=== PATIENT | female | born 1985 | race Caucasian/White ===

== ENCOUNTER 2021-06-19 03:31 | Inpatient (IN) ==
[2021-06-19] MEDS ORDERED: OXYTOCIN 30 UNITS/500 ML BAG IV PRN ×3 (04:48→18:02)
[2021-06-19] MEDS ORDERED: PENICILLIN G POTASSIUM 6 MU in DEXTROSE 5% 250 ML IV STA (04:48)
--- NOTE | 2021-06-19 04:57 | History & Physical Report ---
Date of Service June 19, 2021 Assessment & Plan (1) Amniotic fluid leaking: Plan: IUP at 39 weeks with SPROM - thin mec staining noted GBS positive- will start PCN prophylaxis may need pitocin augmentation of labor wishes to have an unmedicated anticipate vaginal delivery History of Present Illness Primary Care Provider: NO PCP Patient is a 36 yo white female EDC 06/20 who presents at 39+ weeks with leaking fluid at 0300. She has had some ctns since then but nothing regular. complicated by AMA. Blood type B positive GBS positive Allergies Allergy/AdvReac Type Severity Reaction Status Date / Time No Known Allergies Allergy Verified 06/14/21 10:58 Home Medications Medication Instructions Recorded Confirmed Type prenat.vits,elke,ebf-hjmy-kytfz 1 tab PO DAILY 11/02/20 06/14/21 History docusate sodium [Stool Softener] 1 PO 04/26/21 06/14/21 History Patient History Medical History Chicken pox Migraine Yeast infection Surgical History S/P tonsillectomy Status post wisdom tooth extraction Family History Other Anemia Anxiety Arthritis Asthma Bladder infection Breast lump Depression Endometriosis Hypercholesteremia Hypertension Migraine Ovarian cancer Ovarian cyst Painful intercourse Sexual problems Denies family history of Breast cancer Colorectal cancer Social History Smoking Status: Never smoker Second Hand Exposure: No; Do You Dip or Chew Tobacco: No; Tobacco Cessation Education Requested by Patient: No Hx Alcohol Use: No Hx Substance Use: No Preferred Language: German Communication Ability: Effective Pharmacists Required: No Beliefs That Will Affect Care: None marital status: marital status details: Cyril Rosas (45) [phone] Current Living Situation: Spouse Current Living Situation Comment: 17yr and 14yr current occupational status: unemployed Other Information That Helps Us Care for You: No Feels Safe at Home: Yes Safety Concerns: Feels Safe At This Time Assistive Devices: None Review of Systems All systems reviewed & are unremarkable except as noted in HPI & below Physical Exam Constitutional: WD/WN, vitals as above Respiratory: normal respiratory effort, lungs clear to auscultation Cardiovascular: RRR, no murmur, no edema Gastrointestinal (Abdomen): normal bowel sounds, soft, nontender, no hepatosplenomegaly Psychiatric: A+Ox3, euthymic affect Genitourinary: OB Exam Abdomen: + vertex, + estimated weight (6-7 pounds) and + irregular contractions Manual OB Exam: + cervical dilation 4 cm, + cervical effacement 60%, + station (-3 but applied to the cervix) and + amniotic fluid meconium (thin) and nitrazine positive (pooling of thin mec stained fluid in vagina) OB Exam Monitor Tracing: + external FHT monitor used, + external uterine monitor used, + category I and + normal FHT variability Results & Data ([facility]) Vital Signs (Past 12 Hours) Vital Signs Temp Pulse Resp BP 06/19/21 04:08 98.2 F 93 H 20 124/79 06/19/21 03:51 93 H 124/79 Coding Level of Care Code None Diagnoses Amniotic fluid leaking O42.90
[2021-06-19 05:17] LABS: Hematocrit (blood only) 32.9 % (37-47); Hemoglobin 11.5 g/dL (12.0-16.0); Mean Corpuscular Hemoglobin 33.4 pg (25-34); Mean Corpuscular Volume 95.6 fL (80-100); Mean Platelet Volume 9.8 fL (7.4-10.4); Platelet Count 246 K/uL (130-400); RDW Coefficient of Variation 13.3 % (11.5-14.5); RDW Standard Deviation 45.9 fL (36.4-46.3); Red Blood Count 3.44 M/uL (4.2-5.4); White Blood Count 10.88 K/uL (4.8-10.8)
[2021-06-19] MEDS: LACTATED RINGER'S 1,000 ML IV PRN ×3 (05:20→15:39)
[2021-06-19] MEDS: PENICILLIN G POTASSIUM 3 MU in DEXTROSE 5% 100 ML IV PRN ×2 (10:05→13:50)
--- NOTE | 2021-06-19 11:50 | Labor Progress Brief Note ---
Date of Service June 19, 2021 Subjective Feeling ctx. Cervix unchanged. FHT Cat 1 Denning Q 2-5 min Discussed with patient that I would recommend that she begin pitocin to augment ctx into a better labor pattern. She is agreeable. Assessment & Plan Admission and Anticipated Discharge Date Admission Date: June 19, 2021 Results & Data ([facility]) Vital Signs (Past 12 Hours) Vital Signs Temp Pulse Resp BP 06/19/21 10:39 36.7 C 64 20 128/78 06/19/21 07:35 36.5 C 71 20 133/74 06/19/21 04:08 36.8 C 93 H 20 124/79 06/19/21 03:51 93 H 124/79 Coding Level of Care Code None
[2021-06-19] MEDS ORDERED: fentaNYL 2MCG/ML ROPIVACAINE 1.25MG/ML 100 ML BAG EPI ONE (14:41)
[2021-06-19] MEDS ORDERED: ePHEDrine sulfate 50 MG/ML AMP ONE (14:41)
[2021-06-19] MEDS ORDERED: BUPIVACAINE 0.25% 30 ML VIAL ONE (14:41)
[2021-06-19] MEDS ORDERED: SODIUM CHLORIDE 0.9% INJ 10 ML VIAL ONE (14:41)
[2021-06-19] MEDS ORDERED: fentaNYL citrate 100 MCG/2 ML VIAL ONE (14:41)
--- NOTE | 2021-06-19 15:32 | Anesthesiology Consultation ---
Date of Service June 19, 2021 Assessment & Plan Chart Review Chart Review: Acceptable Risk for Labor Epidural Consults Requested none History Height/Weight Height: 5 ft 8 in Weight: 105.687 kg Allergies Allergy/AdvReac Type Severity Reaction Status Date / Time No Known Allergies Allergy Verified 06/14/21 10:58 Medications Home Medications Medication Instructions Recorded Confirmed Last Taken prenat.vits,elke,vxd-uicl-rgqlp 1 tab PO DAILY 11/02/20 06/14/21 06/18/21 1 docusate sodium [Stool Softener] 1 PO 04/26/21 06/14/21 06/18/21 14:00 Active Medications Generic Name Dose Route Start Last Admin Trade Name Freq PRN Reason Stop Dose Admin Penicillin G Potassium 3 mu/ 106 mls @ 100 mls/hr 06/19/21 04:48 06/19/21 13:50 Dextrose IV 06/29/21 04:47 100 mls/hr Q4H PRN Administration Give until delivery Lactated Ringer's 1,000 mls @ 125 mls/hr 06/19/21 04:48 06/19/21 14:37 Lr IV 06/21/21 04:47 Infused .Q8H PRN Infusion L&D Protocol Protocol Oxytocin 30 units in 500 mls @ 5 mls/hr 06/19/21 11:49 06/19/21 13:21 Pitocin IV 06/21/21 11:48 0.3 units/hr .Q24H PRN 5 mls/hr Labor Induction/Augmentation Titration Protocol 0.3 UNITS/HR Past Medical History Medical History Chicken pox Migraine Yeast infection Past Family History Family History Other Anemia Anxiety Arthritis Asthma Bladder infection Breast lump Depression Endometriosis Hypercholesteremia Hypertension Migraine Ovarian cancer Ovarian cyst Painful intercourse Sexual problems Denies family history of Breast cancer Colorectal cancer Past Surgical History Surgical History S/P tonsillectomy Status post wisdom tooth extraction Social History Smoking Status: Never smoker Do You Dip or Chew Tobacco: No Hx Alcohol Use: No Hx Substance Use: No Physical Exam Vital Signs Last Vital Signs Temp 36.1 C L 06/19/21 14:56 Pulse 82 06/19/21 15:29 Resp 22 06/19/21 14:56 BP 121/73 06/19/21 15:29 Pulse Ox 96 06/19/21 15:28 Testing Laboratory Results 06/19/21 05:09
[2021-06-19] MEDS ORDERED: NALBUPHINE HCL INJ 10 MG/ML AMP IV PRN (15:33)
[2021-06-19] MEDS ORDERED: NALOXONE HCL 0.4 MG/1 ML VIAL/CARP IV PRN (15:33)
[2021-06-19] MEDS ORDERED: diphenhydrAMINE 50 MG/ML VIAL IV PRN (15:33)
[2021-06-19] MEDS ORDERED: NALOXONE HCL 1 MG in SODIUM CHLORIDE 0.9% 1000ML 1,000 ML IV PRN (15:33)
[2021-06-19] MEDS ORDERED: ePHEDrine sulfate 50 MG/ML AMP IV PRN (15:33)
[2021-06-19] MEDS ORDERED: fentaNYL 2MCG/ML ROPIVACAINE 1.25MG/ML 100 ML BAG EPI PRN (15:33)
--- NOTE | 2021-06-19 17:31 | Delivery Summary ---
Vaginal Delivery Summary Date of Service June 19, 2021 Vaginal Delivery Summary and 1st Degree LAC Vaginal Delivery Summary: Pre-delivery diagnoses: 36yo @ 39 6/7, SROM, GBS+, AMA Post-delivery diagnoses: same Procedure: spontaneous vaginal delivery, repair of 1st degree perineal laceration Surgeon: Yvonne Henning DO Complications: none Findings: Viable male . Apgars: 8/9. Weight pending, please see nursery records. Estimated blood loss: 300ml Description of delivery: The patient progressed to complete with epidural anesthesia. She then began to push. She spontaneously vaginally delivered a viable from the cephalic presentation. The head delivered in EULALIA position. Nuchal cord x 1, easily reduced. The anterior shoulder delivered, followed by the posterior shoulder, followed by the body. The baby was placed on mother's abdomen and a spontaneous cry was heard. The cord was doubly clamped and cut. A segment was retained for cord gases. Cord blood was obtained. The placenta was delivered spontaneously intact with a 3-vessel cord. The uterus and vagina were swept of clots and debris. IV pitocin was given. Bladder emptied with red rubber catheter. The uterus became firm. The cervix, vagina, and perineum were inspected and a first degree perineal laceration was noted, repaired in standard fashion with 3-0 vicryl. Excellent hemostasis was observed. The mother and baby are recovering in stable and good condition in the room. Sponge, needle and instrument counts were correct x 2. Yvonne Henning DO [facility] [place] Vaginal Delivery Codes: 59658 global code for the antepartum, delivery, and post- Delivery Type Details: and 1st Degree LAC
[2021-06-19] MEDS ORDERED: oxyCODONE/ACETAMINOPHEN 5mg/325mg TAB PO PRN (18:02)
[2021-06-19] MEDS ORDERED: SUPERCREAM 0.870% 15 GM JAR EXT PRN (18:02)
[2021-06-19] MEDS ORDERED: BENZOCAINE 20% AER SPR 82.5 GM CAN EXT PRN (18:02)
[2021-06-19] MEDS ORDERED: bisacodyL 10 MG SUPP PR PRN (18:02)
[2021-06-19] MEDS ORDERED: HYDROCORTISONE ACETATE 25 MG SUPP PR PRN (18:02)
[2021-06-19] MEDS ORDERED: DIPHTHERIA/TETANUS/PERTUSSIS 0.5 ML SYR/VIAL IM ONE (18:02)
--- NOTE | 2021-06-19 19:52 | Anesthesia Procedure Note ---
Date of Service June 19, 2021 Anesthesia Post Epidural Note Vital Signs Vital Signs: Temp Pulse Resp BP Pulse Ox 36.8 C 81 18 137/65 87 L 06/19/21 19:00 06/19/21 19:34 06/19/21 19:00 06/19/21 19:34 06/19/21 16:54 Notes Mental Status: alert / awake / arousable Nausea / Vomiting: adequately controlled Pain: adequately controlled Airway Patency, RR, SpO2: stable & adequate BP & HR: stable & adequate Hydration State: stable & adequate Neuraxial Anesthesia: was administered and sensory block is resolving Anesthetic Complications: no major complications apparent and Pt Satisfied with anesthetic care Epidural: Removed without complications and With tip intact
[2021-06-19] MEDS: IBUPROFEN 600 MG TAB PO PRN (20:24)
[2021-06-19] MEDS: DOCUSATE SODIUM 100 MG CAP PO SCH (20:24)
[2021-06-20] MEDS: IBUPROFEN 600 MG TAB PO PRN ×4 (05:04→20:28)
--- NOTE | 2021-06-20 06:27 | Obstetrical Progress Note ---
Date of Service <Ronan Nguyen MD - Last Filed: 06/20/21 07:37> June 20, 2021 Assessment & Plan <Ronan Nguyen MD - Last Filed: 06/20/21 07:37> (1) Encounter for care and examination after delivery: Stable, routine care -GBS+, Rh+, RI -encourage ambulation -continue regular diet -pain control with analgesia as needed -d/c tomorrow (2) Elderly multigravida: (3) : <Yvonne Henning DO - Last Filed: 06/20/21 07:39> (1) Encounter for care and examination after delivery: (2) Elderly multigravida: (3) : Subjective <Ronan Nguyen MD - Last Filed: 06/20/21 07:37> 36 y/o female who is now PPD #1 following spontaneous vaginal delivery. Reports feeling well overall this morning. + abdominal cramping & 3/10 pain well managed on analgesics. Voiding +. Tolerating meals well and able to ambulate some. Denies passing gas or bowel movements. Some persistent lochia with some improvement this morning. . Review of Systems Denies fever, chills, sweats Denies shortness of breath, difficulty breathing, chest pain, palpitations, chest pressure. Denies breast pain. Denies dysuria. Denies headache or changes in vision Review of Systems All systems reviewed & are unremarkable except as noted in HPI & below Physical Exam <Ronan Nguyen MD - Last Filed: 06/20/21 07:37> General: Alert, oriented. No acute distress. Cardiac: Regular rate and rhythm, no murmurs/rubs/gallops. Respiratory: Clear to auscultation bilaterally a/p, no wheezes/rales/rhonchi. No increased work of breathing. Symmetrical chest rise. No respiratory distress. Abdomen: Soft, nontender, nondistended. Bowel sounds present. Uterus: Uterine fundus firm, palpable 2 cm below umbilicus. Lower Extremities: No lower extremity edema or swelling. No deep calf pain. Kenya's negative bilaterally.. Results & Data ([facility]) <Ronan Nguyen MD - Last Filed: 06/20/21 07:37> Vital Signs (Past 12 Hours) Vital Signs Temp Pulse Pulse Resp BP BP Pulse Ox 06/20/21 04:50 36.8 C 82 18 109/68 98 06/19/21 23:10 36.8 C 70 18 125/70 99 06/19/21 20:00 36.8 C 72 18 132/84 98 06/19/21 19:34 81 137/65 06/19/21 19:19 81 130/68 06/19/21 19:04 78 132/67 06/19/21 19:00 36.8 C 18 06/19/21 18:49 36.9 C 89 20 113/65 06/19/21 18:43 88 118/70 <Yvonne Henning DO - Last Filed: 06/20/21 07:39> Co-Signing Physician Notes Resident Physician Supervision Note: I was present with Dr. Nguyen during the history and exam. I discussed the case with the resident and agree with the findings and plan as documented in the note. Any exceptions or clarifications are listed here: PPD#1 doing well. Anticipate DC tomorrow. Routine care. Documented By: Yvonne Henning DO Resident Activity Tracking <Ronan Nguyen MD - Last Filed: 06/20/21 07:37> Resident Involvement: Resident Care Provided Care Provided: OB Delivery
[2021-06-20 06:55] LABS: Hematocrit (blood only) 31.2 % (37-47); Hemoglobin 10.7 g/dL (12.0-16.0)
[2021-06-20] MEDS: ACETAMINOPHEN 325 MG TAB PO PRN (08:02)
[2021-06-20] MEDS: DOCUSATE SODIUM 100 MG CAP PO SCH ×2 (08:02→20:28)
[2021-06-20] MEDS: PRENATAL VITAMIN 1 TAB PO SCH (08:02)
[2021-06-20] MEDS ORDERED: bisacodyL 5 MG TABEC PO SCH (20:00)
--- NOTE | 2021-06-21 05:55 | Obstetrical Progress Note ---
Date of Service <Ronan Nguyen MD - Last Filed: 06/21/21 07:01> June 21, 2021 Assessment & Plan <Ronan Nguyen MD - Last Filed: 06/21/21 07:01> (1) Encounter for care and examination after delivery: Stable, routine care -GBS+, Rh+, RI -AM d/c after breakfast (2) Elderly multigravida: (3) : <Carly Dai MD - Last Filed: 06/21/21 07:04> (1) Encounter for care and examination after delivery: (2) Elderly multigravida: (3) : Subjective <Ronan Nguyen MD - Last Filed: 06/21/21 07:01> 36 y/o female who is now PPD #2 following spontaneous vaginal delivery. Reports feeling well overall this morning. + abdominal cramping & 2/10 pain well managed on analgesics. Voiding +. Tolerating meals well and able to ambulate some. + passing gas but no bowel movements. Minimal lochia this morning. . Review of Systems Denies fever, chills, sweats Denies shortness of breath, difficulty breathing, chest pain, palpitations, chest pressure. Denies breast pain. Denies dysuria. Denies headache or changes in vision Review of Systems All systems reviewed & are unremarkable except as noted in HPI & below Physical Exam <Ronan Nguyen MD - Last Filed: 06/21/21 07:01> General: Alert, oriented. No acute distress. Cardiac: Regular rate and rhythm, no murmurs/rubs/gallops. Respiratory: Clear to auscultation bilaterally a/p, no wheezes/rales/rhonchi. No increased work of breathing. Symmetrical chest rise. No respiratory distress. Abdomen: Soft, nontender, nondistended. Bowel sounds present. Uterus: Uterine fundus firm, palpable 2 cm below umbilicus. Lower Extremities: No lower extremity edema or swelling. No deep calf pain. Kenya's negative bilaterally.. Results & Data ([facility]) <Ronan Nguyen MD - Last Filed: 06/21/21 07:01> Vital Signs (Past 12 Hours) Vital Signs Temp Pulse Resp BP BP 06/20/21 23:15 36.8 C 76 16 123/85 06/20/21 20:30 37.0 C 75 18 135/86 <Carly Dai MD - Last Filed: 06/21/21 07:04> Co-Signing Physician Notes Resident Physician Supervision Note: I was present with Dr. Nguyen during the history and exam. I discussed the case with the resident and agree with the findings and plan as documented in the note . Any exceptions or clarifications are listed here: PP2 s/p , meeting all pp milestones. VSS, exam benign and wnl. Notes tension ESTES but did not take anything yet for it so will make sure improves. Otherwise stable for d/c home today Documented By: Carly Dai MD Resident Activity Tracking <oRnan Nguyen MD - Last Filed: 06/21/21 07:01> Resident Involvement: Resident Care Provided Care Provided: OB Delivery
[2021-06-21] MEDS: IBUPROFEN 600 MG TAB PO PRN (06:43)
[2021-06-21] MEDS: ACETAMINOPHEN 325 MG TAB PO PRN (06:43)
[2021-06-21] MEDS: DOCUSATE SODIUM 100 MG CAP PO SCH (07:53)
[2021-06-21] MEDS: PRENATAL VITAMIN 1 TAB PO SCH (07:53)
== END 2021-06-21 12:15 | disposition home or self-care (01) | DRG 807 ==
LOC: OPB 03:31 → 4S1 03:35 → 4S2 20:11

== ENCOUNTER 2023-01-20 22:40 | Inpatient (IN) ==
[2023-01-20] MEDS ORDERED: LIDOCAINE 1% LOCAL 20 ML VIAL INFIL PRN (23:40)
[2023-01-20] MEDS ORDERED: OXYTOCIN 30 UNITS/500 ML BAG IV PRN ×2 (23:40)
--- NOTE | 2023-01-20 23:45 | History & Physical Report ---
Date of Service January 20, 2023 Assessment & Plan (1) Supervision of multigravida of advanced maternal age, antepartum: Plan: Admit to L&D. EFM/toco. Labs. Agrees to pitocin to achieve labor pattern with contractions. Desires epidural. Will need MMR . GDM - will check blood sugars hourly. History of Present Illness Chief Complaint: leaking water Primary Care Provider: Jose M Bynum MD 37yo @ 39 12/08, presented to L&D with leaking fluid. Contractions Q 10 minutes. Was evaluated at L&D this morning for ROM, negative ferning/pooling/nitrizine/valsalva. She was sent home with nitrizine paper, she states it was negative all day until 8pm tonight, when it turned bright blue. + movement. No vaginal bleeding. Allergies Allergy/AdvReac Type Severity Reaction Status Date / Time No Known Allergies Allergy Verified 01/17/23 11:40 Home Medications Medication Instructions Recorded Confirmed Type prenat.vits,elke,fia-onnq-bgpvj 1 tab PO DAILY 11/02/20 01/21/23 History acetone (urine) test (Ketone Urine #50 ea 11/23/22 01/17/23 Rx Test strips) blood sugar diagnostic (OneTouch #150 ea 11/23/22 01/17/23 Rx Verio test strips) blood-glucose meter (OneTouch #1 ea 11/23/22 01/17/23 Rx Verio Reflect Meter) lancets 33 gauge (OneTouch Delica #150 ea 11/23/22 01/17/23 Rx Lancets) Patient History Medical History Chicken pox Migraine Yeast infection Surgical History S/P tonsillectomy Status post wisdom tooth extraction Family History Other Anemia Anxiety Arthritis Asthma Bladder infection Breast lump Depression Endometriosis Hypercholesteremia Hypertension Migraine Ovarian cancer Ovarian cyst Painful intercourse Sexual problems Denies family history of Breast cancer Colorectal cancer Social History Smoking Status: Never smoker Second Hand Exposure: No; Hx Alcohol Use: No Hx Substance Use: No Preferred Language: Belarusian Communication Ability: Effective Customer Pricing Manager Required: No Beliefs That Will Affect Care: None marital status: marital status details: Cyril Rosas (47) [phone] Current Living Situation: Spouse and Family Current Living Situation Comment: Lives with , 19 yo daughter, 16 yo daughter, and 19 month old son, current occupational status: unemployed Other Information That Helps Us Care for You: No Feels Safe at Home: Yes Safety Concerns: Feels Safe At This Time Assistive Devices: None Review of Systems All systems reviewed & are unremarkable except as noted in HPI & below Physical Exam Physical Exam: FHT Cat 1 [place] none SVE 2/70/-2/posterior/soft EFW 7-8 Constitutional: WD/WN, vitals as above Respiratory: normal respiratory effort, lungs clear to auscultation no respiratory distress Cardiovascular: Rate/Rhythm: regular rate and regular rhythm Gastrointestinal (Abdomen): Inspection/Auscultation: abdomen normal to inspection Percussion/Palpation: abdomen soft; abdomen nontender Gravid. No s/s chorio or abruption. Skin: no rashes, warm and dry Psychiatric: A+Ox3, euthymic affect Results & Data ([facility]) Vital Signs (Past 12 Hours) Vital Signs Temp Pulse Resp BP 01/20/23 23:11 36.7 C 83 16 114/71 01/20/23 23:17 83 114/71 Coding Level of Care Code None Diagnoses Supervision of multigravida of advanced maternal age, antepartum O09.529
[2023-01-20] MEDS: LACTATED RINGER'S 1,000 ML IV PRN (23:50)
[2023-01-21 00:14] LABS: Hematocrit (blood only) 34.4 % (37.0-47.0); Mean Corpuscular Hemoglobin 33.2 pg (25.0-34.0); Mean Corpuscular Hgb Conc 34.9 g/dL (32.0-36.0); Mean Corpuscular Volume 95.3 fL (80.0-100.0); Mean Platelet Volume 9.7 fL (9.4-12.4); Platelet Count 288 K/uL (130-400); RDW Coefficient of Variation 13.2 % (11.5-14.5); RDW Standard Deviation 45.5 fL (36.4-46.3); Red Blood Count 3.61 M/uL (4.20-5.40)
[2023-01-21] MEDS ORDERED: ePHEDrine sulfate 50 MG/ML AMP ONE (00:24)
[2023-01-21] MEDS ORDERED: fentaNYL citrate 100 MCG/2 ML VIAL ONE (00:24)
[2023-01-21] MEDS ORDERED: SODIUM CHLORIDE 0.9% INJ 10 ML VIAL ONE (00:24)
[2023-01-21] MEDS ORDERED: LIDOCAINE 2%/EPINEPHRINE 1:200,000 20 ML SDV ONE (00:25)
[2023-01-21] MEDS ORDERED: fentaNYL 2MCG/ML ROPIVACAINE 1.25MG/ML 100 ML BAG EPI ONE (00:25)
[2023-01-21] MEDS ORDERED: BUPIVACAINE 0.25% 30 ML VIAL ONE (00:25)
[2023-01-21] MEDS ORDERED: fentaNYL 2MCG/ML ROPIVACAINE 1.25MG/ML 100 ML BAG EPI PRN (00:37)
[2023-01-21] MEDS ORDERED: ePHEDrine sulfate 50 MG/ML AMP IV PRN (00:37)
[2023-01-21] MEDS ORDERED: diphenhydrAMINE 50 MG/ML VIAL IV PRN (00:37)
[2023-01-21] MEDS ORDERED: ONDANSETRON INJ 2 MG/ML 2 ML VIAL IV PRN (00:37)
[2023-01-21] MEDS ORDERED: NALBUPHINE HCL INJ 10 MG/ML AMP IV PRN (00:37)
[2023-01-21] MEDS ORDERED: NALOXONE HCL 1 MG in SODIUM CHLORIDE 0.9% 1000ML 1,000 ML IV PRN (00:37)
[2023-01-21] MEDS ORDERED: NALOXONE HCL 0.4 MG/1 ML VIAL/CARP IV PRN (00:37)
--- NOTE | 2023-01-21 00:38 | Anesthesiology Consultation ---
Date of Service January 21, 2023 Assessment & Plan ASA ASA2 Proposed Anesthesia Anesthesia Type: Labor Epidural Risk / Benefits Reviewed With: PT / POA / Parent / Guardian, Accepts Plan and Informed Consent Obtained History Height/Weight Height: 5 ft 7 in Weight: 108.862 kg Allergies Allergy/AdvReac Type Severity Reaction Status Date / Time No Known Allergies Allergy Verified 01/17/23 11:40 Medications Home Medications Medication Instructions Recorded Confirmed Last Taken prenat.vits,elke,nwg-ddye-wcgfl 1 tab PO DAILY 11/02/20 01/17/23 06/18/21 1 acetone (urine) test (Ketone Urine #50 ea 11/23/22 01/17/23 Unknown Test strips) blood sugar diagnostic (OneTouch #150 ea 11/23/22 01/17/23 Unknown Verio test strips) blood-glucose meter (OneTouch #1 ea 11/23/22 01/17/23 Unknown Verio Reflect Meter) lancets 33 gauge (OneTouch Delica #150 ea 11/23/22 01/17/23 Unknown Lancets) Active Medications Generic Name Dose Route Start Last Admin Trade Name Freq PRN Reason Stop Dose Admin Lactated Ringer's 1,000 mls @ 125 mls/hr 01/20/23 23:40 01/21/23 01:19 Lr IV 01/22/23 23:39 125 mls/hr .Q8H PRN Administration L&D Protocol Protocol Oxytocin 30 units in 500 mls @ 1 mls/hr 01/20/23 23:40 01/21/23 00:15 Pitocin IV 01/22/23 23:39 0.06 units/hr .Q24H PRN 1 mls/hr Labor Induction/Augmentation Administration Protocol 0.06 UNITS/HR Past Medical History Medical History Chicken pox Migraine Yeast infection Exercise / Class Metabolic Activity II 4-5 Yardwork/Stairs/Walk up hill Past Family History Family History Other Anemia Anxiety Arthritis Asthma Bladder infection Breast lump Depression Endometriosis Hypercholesteremia Hypertension Migraine Ovarian cancer Ovarian cyst Painful intercourse Sexual problems Denies family history of Breast cancer Colorectal cancer Past Surgical History Surgical History (Reviewed 01/21/23 @ 00:38 by NOLA Babb S/P tonsillectomy Status post wisdom tooth extraction Past Anesthesia History No Hx of Anesthesia Complications and No Family Hx of Anesthesia Complications History of PONV No Hx of PONV and No Hx of Motion Sickness Social History Smoking Status: Never smoker Hx Alcohol Use: No Hx Substance Use: No substance use type: does not use Review of Systems denies fever/cough/ colds/ chest pain/ SOB/ DESEAN denies DESEAN Physical Exam Vital Signs Last Vital Signs Temp 36.7 C 01/20/23 23:11 Pulse 98 H 01/21/23 01:35 Resp 16 01/20/23 23:11 BP 140/72 01/21/23 01:32 Pulse Ox 94 01/21/23 01:35 ENMT Mouth: no TMJ abnormality and no dentition abnormality Thyromental Distance: > or= 3.5 Finger Breadths Mallampati Class: II Neck neck extension not limited Respiratory normal respiratory effort; no respiratory distress Auscultation: lungs clear to auscultation bilaterally Cardiovascular Rate/Rhythm: regular rate and regular rhythm Neurologic moves all extremities Psychiatric Orientation: alert and oriented x 3 Testing Laboratory Results 01/20/23 23:52
[2023-01-21] MEDS: LACTATED RINGER'S 1,000 ML IV PRN (01:19)
--- NOTE | 2023-01-21 04:27 | Labor Progress Brief Note ---
Date of Service January 21, 2023 Subjective Comfortable with epidural. FHT Cat cat 1 Soldier Q 2-3 SVE 4-5/70/-1, there is a 1cm nodule on patient's left cervix, this is not part of baby and is to the patient's left of the external os (approx 3 o'clock). Suspect Nabothian cyst. Continue labor. Assessment & Plan Admission and Anticipated Discharge Date Admission Date: January 20, 2023 Results & Data ([facility]) Vital Signs (Past 12 Hours) Vital Signs Temp Pulse Resp BP Pulse Ox 01/21/23 04:22 76 98 01/21/23 04:18 98 H 109/61 01/21/23 04:17 74 100 01/21/23 04:12 78 98 01/21/23 04:07 72 98 01/21/23 04:04 88 94 01/21/23 04:02 68 98 01/21/23 03:57 74 98 01/21/23 03:52 70 99 01/21/23 03:47 71 97 01/21/23 03:48 81 96/66 L 94 01/21/23 03:42 76 96 01/21/23 03:37 67 97 01/21/23 03:32 77 98 01/21/23 03:33 75 102/67 01/21/23 03:27 93 H 97 01/21/23 03:22 94 H 99 01/21/23 03:17 83 96 01/21/23 03:18 79 105/67 01/21/23 03:15 74 94 01/21/23 03:12 78 95 01/21/23 03:09 70 94 01/21/23 03:07 83 97 01/21/23 03:04 63 99/59 L 01/21/23 03:02 93 H 97 01/21/23 02:59 110 H 91 01/21/23 02:57 90 97 01/21/23 02:52 72 97 01/21/23 02:47 95 H 96 01/21/23 02:48 86 107/65 01/21/23 02:42 79 97 01/21/23 02:37 87 96 01/21/23 02:34 85 108/66 01/21/23 02:32 96 01/21/23 02:32 73 01/21/23 02:32 85 93 01/21/23 02:27 74 97 01/21/23 02:22 66 99 01/21/23 02:18 82 108/68 01/21/23 02:17 83 95 01/21/23 02:12 96 01/21/23 02:12 92 H 01/21/23 02:12 82 94 01/21/23 02:07 91 H 95 01/21/23 02:03 85 115/67 01/21/23 02:02 93 H 96 01/21/23 01:57 83 96 01/20/23 23:11 36.7 C 83 16 114/71 01/21/23 01:52 81 96 01/21/23 01:50 95 H 94 01/21/23 01:47 94 H 98 01/21/23 01:48 85 126/67 01/21/23 01:42 115 H 97 01/21/23 01:37 89 95 01/21/23 01:35 98 H 94 01/21/23 01:32 90 140/72 96 01/21/23 01:30 103 H 127/72 01/21/23 01:27 100 H 94 01/21/23 01:28 104 H 103/69 93 01/21/23 01:26 90 130/66 01/21/23 01:23 86 130/63 01/21/23 01:22 86 98 01/21/23 01:21 81 91 01/21/23 01:20 76 132/71 01/21/23 01:19 75 141/74 H 01/21/23 01:17 78 98 01/21/23 01:16 74 133/77 01/21/23 01:14 83 133/83 01/21/23 01:12 80 98 01/21/23 01:11 85 132/71 01/20/23 22:57 16 01/20/23 22:57 36.7 C 16 01/21/23 00:52 86 138/89 01/21/23 00:34 80 137/82 01/21/23 00:18 78 119/71 01/20/23 23:17 83 114/71 Coding Level of Care Code None Diagnoses
--- NOTE | 2023-01-21 06:03 | Delivery Summary ---
Vaginal Delivery Summary Date of Service January 21, 2023 Vaginal Delivery Summary and 2nd Degree LAC Vaginal Delivery Summary: Pre-delivery diagnoses: 37yo @ 39 2/7, spontaneous labor, Anti-M antibody, AMA, rubella equivocal, small VSD seen on anatomy US, GDMA1 Post-delivery diagnoses: same Procedure: spontaneous vaginal delivery, repair of 2nd degree perineal laceration Surgeon: Yvonne Henning DO Complications: none Findings: Viable female . Apgars: 8/9. Weight pending, please see nursery records. Estimated blood loss: 300ml Description of delivery: The patient progressed to complete with epidural anesthesia. She then pushed once to spontaneously vaginally deliver a viable from the cephalic presentation. The head delivered in EULALIA position. Nuchal cord x 1, easily reduced. The anterior shoulder delivered, followed by t he posterior shoulder, followed by the body. The baby was placed on mother's abdomen and a spontaneous cry was heard. Delayed cord clamping was employed, and the cord was doubly clamped and cut. Cord blood was obtained. The placenta was delivered spontaneously intact with a 3-vessel cord. The uterus and vagina were swept of clots and debris. Previously evaluated cervical nabothian cyst was not found on exam after delivery. IV pitocin was given. The uterus became firm. The cervix, vagina, and perineum were inspected and a 2nd degree perineal laceration was noted and repaired with 3-0 vicryl in standard fashion. Excellent hemostasis was observed. The mother and baby are recovering in stable and good condition in the room. Sponge, needle and instrument counts were correct x 2. Yvonne Henning DO [facility] Vaginal Delivery Charge Vaginal Delivery Codes: 96577 global code for the antepartum, delivery, and post - Delivery Type Details: and 2nd Degree LAC
[2023-01-21] MEDS ORDERED: BENZOCAINE 20% AER SPR 82.5 GM CAN EXT PRN (06:25)
[2023-01-21] MEDS ORDERED: DIPHTHERIA/TETANUS/PERTUSSIS 0.5mL SYR/VIAL (Age 7+yrs) IM ONE (06:25)
[2023-01-21] MEDS ORDERED: ACETAMINOPHEN 325 MG TAB PO PRN (06:25)
[2023-01-21] MEDS ORDERED: bisacodyL 10 MG SUPP PR PRN (06:25)
[2023-01-21] MEDS ORDERED: OXYTOCIN 30 UNITS/500 ML BAG IV PRN (06:25)
[2023-01-21] MEDS ORDERED: HYDROCORTISONE ACETATE 25 MG SUPP PR PRN (06:25)
--- NOTE | 2023-01-21 06:57 | Anesthesia Procedure Note ---
Date of Service January 21, 2023 Anesthesia Post Epidural Note Vital Signs Vital Signs: Temp Pulse Resp BP Pulse Ox 36.7 C 80 16 157/65 H 97 01/20/23 23:11 01/21/23 06:48 01/20/23 23:11 01/21/23 06:48 01/21/23 05:32 Notes Mental Status: alert / awake / arousable and participated in evaluation Nausea / Vomiting: adequately controlled Pain: adequately controlled Airway Patency, RR, SpO2: stable & adequate BP & HR: stable & adequate Hydration State: stable & adequate Neuraxial Anesthesia: was administered and sensory block is resolving Anesthetic Complications: no major complications apparent and Pt Satisfied with anesthetic care Epidural: Removed without complications and With tip intact
[2023-01-21] MEDS: DOCUSATE SODIUM 100 MG CAP PO SCH ×2 (08:33→20:07)
[2023-01-21] MEDS: PRENATAL VITAMIN 1 TAB PO SCH (08:33)
[2023-01-21] MEDS: IBUPROFEN 600 MG TAB PO PRN ×3 (11:47→20:07)
[2023-01-21] MEDS: oxyCODONE/ACETAMINOPHEN 5mg/325mg TAB PO PRN (22:50)
[2023-01-22] MEDS: IBUPROFEN 600 MG TAB PO PRN ×4 (00:47→18:01)
[2023-01-22] MEDS: oxyCODONE/ACETAMINOPHEN 5mg/325mg TAB PO PRN ×2 (03:18→08:41)
--- NOTE | 2023-01-22 04:41 | Obstetrical Progress Note ---
Date of Service January 22, 2023 Assessment & Plan (1) care following vaginal delivery: (2) Rubella non-immune status, antepartum: (3) Maternal atypical antibody complicating : Plan - Overall, feeling well and eating well today - Infant feeding going well without concern - Urinating and passing gas appropriately - Ambulating well in room - Pain controlled w/ Ibuprofen/Percocet - Labial pain improved w/ Percocet (s/p repair or previous scarring) - Hgb 12.0 on 01/20 - Vitals stable and wnl - Routine PP care progressing well - Anticipate discharge @ 24-48 hours PP - Rubella non-immune, needs MMR - Recommending f/u outpatient in 6 weeks Admission and Anticipated Discharge Date Admission Date: January 20, 2023 Supervising Physician Co-Signing Physician Notes Resident Physician Supervision Note: I interviewed and examined the patient. Discussed with Dr. Burgess and agree with findings and plan as documented in the note. Any exceptions or clarifications are listed here: PP1 s/p , doing well. VSS, exam benign and wnl. Continue routine pp care Documented By: Carly Dai MD Ari Parrish is a 37F who is PPD #1 following delivery at 39 1/7. She reports feeling well overall this morning. - Ambulation - well throughout room - Voiding/[place] - independent voids, no dysuria or pressure - Gas/Stool - passing gas, no bowel movement - Diet - regular, no nausea or emesis - Lochia - diminishing, light amount - Infant Feeding Type - breast feeding - Pain Level - 4/10, controlled with Ibuprofen/Percocet - Concern regarding labial pain/swelling Review of Systems - Denies fever, chills, sweats - Denies shortness of breath, difficulty breathing, chest pain, palpitations, chest pressure. - Denies breast pain. - Denies dysuria. - Denies headache or changes in vision. Physical Exam Physical Exam: General: Alert, oriented. No acute distress. Cardiac: RRR, normal S1/S2, no murmurs/rubs/gallops. Respiratory: Non-labored, CTAB, no wheezes/rales/rhonchi. Symmetric chest rise. Abdomen: Soft, nontender, nondistended. Bowel sounds present. Uterus: Uterine fundus firm, palpable 2 cm below umbilicus. Lower Extremities: Trace lower extremity edema or swelling. No deep calf pain. [place]'s negative bilaterally. Results & Data ([facility]) Vital Signs (Past 12 Hours) Vital Signs Temp Pulse Resp BP Pulse Ox O2 Del Method 01/21/23 23:00 36.9 C 86 18 123/82 98 Room Air 01/21/23 19:20 37 C 82 18 108/74 97 Room Air Resident Activity Tracking Resident Involvement: Resident Care Provided Care Provided: OB Delivery
[2023-01-22 06:36] LABS: Hematocrit (blood only) 29.8 % (37.0-47.0); Hemoglobin 10.1 g/dl (12.0-16.0)
[2023-01-22] MEDS: DOCUSATE SODIUM 100 MG CAP PO SCH ×2 (08:41→20:13)
[2023-01-22] MEDS: PRENATAL VITAMIN 1 TAB PO SCH (08:41)
[2023-01-22] MEDS ORDERED: MEASLES, MUMPS & RUBELLA VIRUS VIAL SQ ONE (08:56)
[2023-01-22] MEDS ORDERED: bisacodyL 5 MG TABEC PO SCH (20:00)
[2023-01-23] MEDS: IBUPROFEN 600 MG TAB PO PRN (03:41)
--- NOTE | 2023-01-23 05:28 | Obstetrical Progress Note ---
Date of Service January 23, 2023 Assessment & Plan (1) care following vaginal delivery: (2) Rubella non-immune status, antepartum: (3) Maternal atypical antibody complicating : Plan - Overall, feeling well and eating well today - Infant feeding going well without concern - Urinating and passing gas appropriately - Ambulating well in room - Pain controlled w/ Ibuprofen/Percocet - Labial pain improved w/ Percocet (s/p repair or previous scarring) - Hgb 12.0 on 01/20, 10.1 on 01/22 - Vitals stable and wnl - Routine PP care progressing well - Anticipate discharge @ 24-48 hours PP - Rubella non-immune, needs MMR - Recommending f/u outpatient in 6 weeks Admission and Anticipated Discharge Date Admission Date: January 20, 2023 Supervising Physician Co-Signing Physician Notes Resident Physician Supervision Note: I interviewed and examined the patient. Discussed with Dr. Burgess and agree with findings and plan as documented in the note. Any exceptions or clarifications are listed here: Doing well. plan d/c today. Instructions reviewed. Documented By: Amy Guajardo MD, FACOG Subjective Shivani is a 37F who is PPD #2 following delivery at 39 1/7. She reports feeling well overall this morning. - Ambulation - well throughout room - Voiding/[place] - independent voids, no dysuria or pressure - Gas/Stool - passing gas, no bowel movement - Diet - regular, no nausea or emesis - Lochia - diminishing, light amount - Feeding Type - breast feeding - Pain Level - 3/10, controlled with Ibuprofen/Percocet - Improved labial pain/swelling Review of Systems - Denies fever, chills, sweats - Denies shortness of breath, difficulty breathing, chest pain, palpitations, chest pressure. - Denies breast pain. - Denies dysuria. - Denies headache or changes in vision. Physical Exam Physical Exam: General: Alert, oriented. No acute distress. Cardiac: RRR, normal S1/S2, no murmurs/rubs/gallops. Respiratory: Non-labored, CTAB, no wheezes/rales/rhonchi. Symmetric chest rise. Abdomen: Soft, nontender, nondistended. Bowel sounds present. Uterus: Uterine fundus firm, palpable 2 cm below umbilicus. Lower Extremities: Trace lower extremity edema or swelling. No deep calf pain. [place]'s negative bilaterally. Results & Data ([facility]) Vital Signs (Past 12 Hours) Vital Signs Temp Pulse Resp BP O2 Del Method 01/22/23 23:00 37.0 C 80 18 111/70 Room Air 01/22/23 19:20 36.9 C 86 18 128/85 Room Air Resident Activity Tracking Resident Involvement: Resident Care Provided Care Provided: OB Delivery
[2023-01-23] MEDS: DOCUSATE SODIUM 100 MG CAP PO SCH (07:32)
[2023-01-23] MEDS: PRENATAL VITAMIN 1 TAB PO SCH (07:32)
== END 2023-01-23 10:30 | disposition home or self-care (01) | DRG 807 ==
LOC: OPB 22:40 → 4S1 22:42 → 4E2 01-21 08:50